=== PATIENT | female | born 1980 | race Hispanic/Latino ===

== ENCOUNTER 2022-04-28 16:28 | Inpatient (IN) | payer OTHER ==
[~2022-04-28] VITALS: Ht 165.1 cm; Wt 111.7 kg
[2022-04-28 16:49] LABS: BASOPHILS % (AUTO) 0.3 % (0.0-5.0); EOSINOPHILS % (AUTO) 0.2 % (0.0-8.0); HEMATOCRIT 22.1 % (36-48); LYMPHOCYTES % (AUTO) 4.8 % (21.0-51.0); MEAN CORPUSCULAR HEMOGLOBIN 27.9 pg (27.0-33.0); MEAN CORPUSCULAR HGB CONC 31.2 g/dL (32.0-36.0); MEAN CORPUSCULAR VOLUME 89.5 fL (79-99); MONOCYTES % (AUTO) 6.3 % (3.0-13.0); NEUTROPHILS % (AUTO) 87.7 % (40.0-77.0); PLATELET COUNT (AUTO) 307 K/uL (130-400); RED BLOOD CELL COUNT(AUTO) 2.47 MIL/uL (4.00-5.50); RED CELL DISTRIBUTION WIDTH 17.4 % (11.0-15.5); WHITE BLOOD COUNT (AUTO) 17.2 K/uL (4.8-10.8)
[2022-04-28 16:59] LABS: CREATININE 6.8 mg/dL (0.5-1.5); POTASSIUM 4.2 mmol/L (3.5-5.1)
[2022-04-28 17:03] LABS: ALBUMIN 1.8 g/dL (3.5-5.0); TOTAL PROTEIN, SERUM 6.8 g/dL (6.0-8.3)
[2022-04-28] MEDS ORDERED: ONDANSETRON 4MG INJ IVP ONE (17:30)
[2022-04-28] MEDS ORDERED: 0.9% NACL 250ML 250 ML IV ONE (17:30)
[2022-04-28] MEDS ORDERED: MORPHINE 4 MG SYG IVP ONE (17:30)
[2022-04-28 18:03] LABS: APPEARANCE,URINE CLOUDY (CLEAR); BILIRUBIN,URINE NEGATIVE (NEGATIVE); COLOR,URINE YELLOW (YELLOW); GLUCOSE, URINE (UA) NEGATIVE (NEGATIVE); HCG,QUALITATIVE URINE NEGATIVE (NEGATIVE); KETONES,URINE NEGATIVE (NEGATIVE); LEUKOCYTE ESTERASE ,URINE LARGE (NEGATIVE); NITRATE,URINE POSITIVE (NEGATIVE); OCCULT BLOOD,URINE LARGE (NEGATIVE); PROTEIN,URINE 100 mg/dL (NEGATIVE); UROBILINOGEN,URINE 0.2 mg/dL (0.2-1.0)
[2022-04-28 18:24] LABS: BACTERIA,URINE Few /HPF (None Seen); RBC,URINE 51-100 /HPF (0-1); SQUAMOUS EPITHELIAL CELL,UR Few /HPF (0-2); YEAST,URINE BUDDING Rare /HPF (None Seen)
[2022-04-28] MEDS ORDERED: CEFTRIAXONE 1G VIAL IVP ONE (18:30)
[2022-04-28] MEDS ORDERED: ACETAMINOPHEN 325 MG TAB PO PRN (20:00)
[2022-04-28] MEDS ORDERED: DEXTROSE 50%-WATER 50 ML DISP.SYRIN IV PRN (20:00)
[2022-04-28] MEDS ORDERED: ONDANSETRON 4MG INJ IV PRN (20:00)
[2022-04-28] MEDS ORDERED: GLUCAGON 1MG KIT 1 MG ML IM PRN (20:00)
[2022-04-28] MEDS ORDERED: NITROGLYCERIN 0.4 MG SL TAB SL PRN (20:00)
[2022-04-28 20:41] LABS: INR 1.02 (0.85-1.15); PROTHROMBIN TIME 11.1 SEC (9.6-11.6)
[2022-04-28 20:43] LABS: % IRON SATURATION 12.2 % (22-44); PARTIAL THROMBOPLASTIN TIME 27.7 SEC (26.3-35.5)
[2022-04-28 20:46] LABS: HEMOGLOBIN A1C 5.6 % (4.0-6.0)
[2022-04-28] MEDS: INSULIN HUMULIN R 100 UNIT/ML 3ML SQ SCH (21:00)
[2022-04-28 21:04] LABS: CRP QUANTITATIVE 227.4 mg/L (0.00-9.0)
[2022-04-28 21:06] LABS: MAGNESIUM 1.5 mg/dL (1.80-2.40)
[2022-04-28] MEDS: FAMOTIDINE 20MG TAB PO SCH (22:17)
[2022-04-28 22:50] VITALS: BP 125/61
[2022-04-28] MEDS ORDERED: 0.9%NACL 50ML IV SCH (23:30)
[2022-04-28] MEDS ORDERED: CALCIUM GLUC 1GM/10ML VIAL IVPB SCH (23:30)
[2022-04-28] MEDS ORDERED: TRAZ-187 PO (23:36)
[2022-04-28] MEDS ORDERED: METOPROLOL ER PO (23:37)
[2022-04-28] MEDS ORDERED: HYDR100T27 PO (23:38)
[2022-04-29 04:00] VITALS: BP 131/74
[2022-04-29] MEDS: ACETAMINOPHEN 325 MG TAB PO PRN ×3 (04:34→20:02)
[2022-04-29 04:47] LABS: CREATININE 6.6 mg/dL (0.5-1.5); POTASSIUM 4.8 mmol/L (3.5-5.1)
[2022-04-29 04:51] LABS: ALBUMIN 1.9 g/dL (3.5-5.0); MAGNESIUM 1.6 mg/dL (1.80-2.40); PHOSPHORUS 4.3 mg/dL (2.5-4.9); TOTAL PROTEIN, SERUM 7.5 g/dL (6.0-8.3)
[2022-04-29 05:06] LABS: BASOPHILS % (AUTO) 0.3 % (0.0-5.0); EOSINOPHILS % (AUTO) 0.5 % (0.0-8.0); HEMATOCRIT 27.7 % (36-48); LYMPHOCYTES % (AUTO) 7.3 % (21.0-51.0); MEAN CORPUSCULAR HEMOGLOBIN 28.4 pg (27.0-33.0); MEAN CORPUSCULAR HGB CONC 31.8 g/dL (32.0-36.0); MEAN CORPUSCULAR VOLUME 89.4 fL (79-99); MONOCYTES % (AUTO) 6.5 % (3.0-13.0); NEUTROPHILS % (AUTO) 84.6 % (40.0-77.0); PLATELET COUNT (AUTO) 310 K/uL (130-400); RED CELL DISTRIBUTION WIDTH 17.2 % (11.0-15.5); WHITE BLOOD COUNT (AUTO) 20.2 K/uL (4.8-10.8)
[2022-04-29] MEDS: MAGNESIUM 2GM PREMIX 50ML 50 ML IV SCH (05:20)
[2022-04-29] MEDS: INSULIN HUMULIN R 100 UNIT/ML 3ML SQ SCH ×4 (05:21→20:18)
[2022-04-29 07:39] VITALS: BP 103/48
[2022-04-29] MEDS: FAMOTIDINE 20MG TAB PO SCH (08:37)
[2022-04-29] MEDS ORDERED: CEFTRIAXONE 1G VIAL IV SCH (09:00)
[2022-04-29 11:22] VITALS: BP 130/72
[2022-04-29 15:39] VITALS: BP 148/73
[2022-04-29 15:40] VITALS: BP 113/54
[2022-04-29 19:50] LABS: APPEARANCE,URINE CLOUDY (CLEAR); BILIRUBIN,URINE NEGATIVE (NEGATIVE); COLOR,URINE YELLOW (YELLOW); GLUCOSE, URINE (UA) NEGATIVE (NEGATIVE); KETONES,URINE NEGATIVE (NEGATIVE); LEUKOCYTE ESTERASE ,URINE LARGE (NEGATIVE); NITRATE,URINE NEGATIVE (NEGATIVE); OCCULT BLOOD,URINE LARGE (NEGATIVE); PROTEIN,URINE 30 mg/dL (NEGATIVE); UROBILINOGEN,URINE 0.2 mg/dL (0.2-1.0)
[2022-04-29 20:00] VITALS: BP 114/67
[2022-04-29] MEDS ORDERED: LEVOFLOXACIN 250 MG/D5W 50ML 50 ML IVPB SCH (20:00)
[2022-04-29 20:10] LABS: RBC,URINE 26-50 /HPF (0-1)
[2022-04-29 20:11] LABS: BACTERIA,URINE Few /HPF (None Seen)
[2022-04-29 20:12] LABS: SQUAMOUS EPITHELIAL CELL,UR Rare /HPF (0-2); YEAST,URINE BUDDING Few /HPF (None Seen)
[2022-04-29] MEDS: CEFEPIME HCL 1 GM VIAL IVP SCH (20:56)
[2022-04-30] VITALS (7 sets, daily range): BP systolic 99–160; BP diastolic 57–98
[2022-04-30] MEDS: ACETAMINOPHEN 325 MG TAB PO PRN ×2 (01:52→09:12)
[2022-04-30 05:30] LABS: HEMATOCRIT 23.6 % (36-48); MEAN CORPUSCULAR HGB CONC 31.8 g/dL (32.0-36.0); MEAN CORPUSCULAR VOLUME 88.1 fL (79-99); PLATELET COUNT (AUTO) 290 K/uL (130-400); RED BLOOD CELL COUNT(AUTO) 2.68 MIL/uL (4.00-5.50); RED CELL DISTRIBUTION WIDTH 17.2 % (11.0-15.5); WHITE BLOOD COUNT (AUTO) 16.9 K/uL (4.8-10.8)
[2022-04-30 05:45] LABS: % IRON SATURATION 19.2 % (22-44)
[2022-04-30 05:56] LABS: ALBUMIN 1.5 g/dL (3.5-5.0); CREATININE 6.4 mg/dL (0.5-1.5); MAGNESIUM 1.8 mg/dL (1.80-2.40); PHOSPHORUS 4.4 mg/dL (2.5-4.9); POTASSIUM 4.6 mmol/L (3.5-5.1); TOTAL PROTEIN, SERUM 6.2 g/dL (6.0-8.3)
[2022-04-30] MEDS: INSULIN HUMULIN R 100 UNIT/ML 3ML SQ SCH ×4 (05:56→21:00)
[2022-04-30] MEDS: MAGNESIUM 2GM PREMIX 50ML 50 ML IV SCH (06:06)
[2022-04-30 06:07] LABS: BAND NEUTROPHILS % (MANUAL) 3 % (0-2); LYMPHOCYTES % (MANUAL) 5 % (22-44); MAN.DIFF COMMENT-IMPRESSION MANUAL DIFFERENTIAL; MONOCYTES % (MANUAL) 2 % (2-9); PLATELET MORPHOLOGY COMMENT ADEQUATE; SEGMENTED NEUTROPHILS % 90 % (40-70)
[2022-04-30] MEDS: FAMOTIDINE 20MG TAB PO SCH (09:11)
[2022-04-30] MEDS: Vitamin B Complex/Vit C/Folic Acid PO SCH (09:11)
[2022-04-30] MEDS ORDERED: PHARMACY COMMUNICATION MISC SCH (10:30)
[2022-04-30] MEDS ORDERED: KETOROLAC 15MG/ML VIAL (15MG/ML) IV PRN (10:30)
[2022-04-30] MEDS: IRON SUCROSE COMPLEX 300 MG in 0.9% NACL 250ML 250 ML IVP SCH (10:59)
[2022-04-30] MEDS ORDERED: COMPOUND IV MISC 1 EACH IVSOLN MISC PRN (12:00)
[2022-04-30 14:48] LABS: HEMATOCRIT 22.7 % (36-48)
[2022-04-30] MEDS: CEFEPIME HCL 1 GM VIAL IVP SCH (19:55)
[2022-04-30] MEDS ORDERED: LEVOFLOXACIN 250 MG/D5W 50ML 50 ML IVPB SCH (20:00)
[2022-05-01] VITALS: BP 114/52
[2022-05-01 04:00] VITALS: BP 134/66
[2022-05-01] MEDS: INSULIN HUMULIN R 100 UNIT/ML 3ML SQ SCH ×3 (06:03→16:30)
[2022-05-01 07:30] VITALS: BP 150/32
[2022-05-01 08:29] LABS: HEMATOCRIT 25.4 % (36-48); MEAN CORPUSCULAR HEMOGLOBIN 28.1 pg (27.0-33.0); MEAN CORPUSCULAR HGB CONC 31.9 g/dL (32.0-36.0); MEAN CORPUSCULAR VOLUME 88.2 fL (79-99); PLATELET COUNT (AUTO) 332 K/uL (130-400); RED BLOOD CELL COUNT(AUTO) 2.88 MIL/uL (4.00-5.50); RED CELL DISTRIBUTION WIDTH 17.2 % (11.0-15.5); WHITE BLOOD COUNT (AUTO) 19.2 K/uL (4.8-10.8)
[2022-05-01 08:37] LABS: CREATININE 6.2 mg/dL (0.5-1.5); POTASSIUM 4.9 mmol/L (3.5-5.1)
[2022-05-01 08:42] LABS: ALBUMIN 1.7 g/dL (3.5-5.0); TOTAL PROTEIN, SERUM 6.7 g/dL (6.0-8.3)
[2022-05-01] MEDS ORDERED: IRON SUCROSE COMPLEX 100 MG in 0.9%NACL 50ML 50 ML IV SCH (09:00)
[2022-05-01] MEDS: IRON SUCROSE COMPLEX 300 MG in 0.9% NACL 250ML 250 ML IVP SCH (09:00)
[2022-05-01] MEDS: Vitamin B Complex/Vit C/Folic Acid PO SCH (09:21)
[2022-05-01] MEDS: FAMOTIDINE 20MG TAB PO SCH (09:21)
[2022-05-01] MEDS: ACETAMINOPHEN 325 MG TAB PO PRN (09:22)
[2022-05-01 09:47] LABS: BAND NEUTROPHILS % (MANUAL) 1 % (0-2); EOSINOPHILS % (MANUAL) 1 % (1-6); LYMPHOCYTES % (MANUAL) 4 % (22-44); MAN.DIFF COMMENT-IMPRESSION MANUAL DIFFERENTIAL; MONOCYTES % (MANUAL) 1 % (2-9); SEGMENTED NEUTROPHILS % 93 % (40-70)
[2022-05-01 11:00] VITALS: BP 99/32
[2022-05-01] MEDS ORDERED: LEVO750T68 PO (14:33)
[2022-05-01] MEDS ORDERED: LEVOFLOXACIN 250 MG/D5W 50ML 50 ML IVPB SCH (20:00)
== END 2022-05-01 17:45 | disposition home or self-care (01) | DRG 871 ==
LOC: EDH 16:28 → EDHIP 16:29 → 4DH 22:41
PROVIDERS: ADMIT Internal Medicine; ATTEND Internal Medicine
PROC: 30233N1 Transfusion of Nonautologous Red Blood Cells into Peripheral Vein, Percutaneous Approach (ICD-10-PCS; principal; 2022-04-29)
DX: A41.9 Sepsis, unspecified organism (principal); N18.6 End stage renal disease; Z20.822 Contact with and (suspected) exposure to COVID-19; N39.0 Urinary tract infection, site not specified; E87.1 Hypo-osmolality and hyponatremia; Z68.41 Body mass index [BMI] 40.0-44.9, adult; R65.20 Severe sepsis without septic shock; K57.30 Diverticulosis of large intestine without perforation or abscess without bleeding; N18.9 Chronic kidney disease, unspecified; E83.51 Hypocalcemia; E83.42 Hypomagnesemia; E11.22 Type 2 diabetes mellitus with diabetic chronic kidney disease; E66.01 Morbid (severe) obesity due to excess calories
CPT/HCPCS: 36415; 74176; 80053; 81001; 81025; 82306; 82330; 82728; 82948; 83036; 83540; 83550; 83605; 83690; 83735; 83970; 84100; 84145; 85014; 85018; 85025; 85610; 85730; 86140; 86156; 86850; 86870; 86900; 86901; 86922; 87040; 87077; 87088; 87186; 87635; G0378; J0692; J0696; J1756; J1815; J1885; J1956; J2270; J2405; J3475; J7050; P9016

== ENCOUNTER 2024-01-24 17:22 | Emergency (ER) | payer BC ==
[~2024-01-24] VITALS: Ht 165.1 cm; Wt 101.6 kg
[~2024-01-24 17:22] MED LIST: REPA0.5T6 PO; SEVE800T27 PO; TRAZ-187 PO
[2024-01-24 18:01] LABS: BASOPHILS % (AUTO) 1.1 % (0.0-5.0); EOSINOPHILS # (AUTO) 0.19 K/uL (0.00-0.70); EOSINOPHILS % (AUTO) 2.1 % (0.0-8.0); HEMATOCRIT 33.4 % (36-48); IMMATURE GRANULOCYTE ABSOLUTE 0.03 K/uL (0-1); LYMPHOCYTES # (AUTO) 1.7 K/uL (1.0-4.8); LYMPHOCYTES % (AUTO) 18.5 % (21.0-51.0); MEAN CORPUSCULAR HEMOGLOBIN 31.9 pg (27.0-33.0); MEAN CORPUSCULAR HGB CONC 33.5 g/dL (32.0-36.0); MEAN CORPUSCULAR VOLUME 95.2 fL (79-99); MONOCYTES # (AUTO) 0.5 K/uL (0.1-1.0); MONOCYTES % (AUTO) 5.4 % (3.0-13.0); NEUTROPHILS # (AUTO) 6.7 K/uL (1.8-7.7); NEUTROPHILS % (AUTO) 72.6 % (40.0-77.0); PLATELET COUNT (AUTO) 239 K/uL (130-400); RED BLOOD CELL COUNT(AUTO) 3.51 MIL/uL (4.00-5.50); RED CELL DISTRIBUTION WIDTH 13.5 % (11.0-15.5); WHITE BLOOD COUNT (AUTO) 9.2 K/uL (4.8-10.8)
[2024-01-24 18:13] LABS: ALANINE AMINOTRANSFERASE 12 U/L (12-78); ALBUMIN 3.4 g/dL (3.5-5.0); ALCOHOL, BLOOD 52 mg/dL (0-10); ASPARTATE AMINOTRANSFERASE 20 U/L (10-37); BILIRUBIN,TOTAL 0.6 mg/dL (0.2-1.0); CARBON DIOXIDE 22 mmol/L (21-32); CHLORIDE 93 mmol/L (101-111); GLOMERULAR FILTR. RATE CALC 5 mL/min (>90); GLUCOSE,RANDOM 107 mg/dL (70-105); POTASSIUM 4.1 mmol/L (3.5-5.1); SODIUM SERUM 134 mmol/L (136-145); UREA NITROGEN, BLOOD 55 mg/dL (7-18)
[2024-01-24 18:14] LABS: ACETAMINOPHEN < 1 mcg/mL (10-30); SALICYLATE < 2.8 mg/dL (2.8-20.0)
[2024-01-24 18:15] LABS: CREATININE 9.7 mg/dL (0.5-1.0)
[2024-01-24] MEDS: HYDROXYZINE 50MG VIAL 50 MG/ML VIAL IM SCH (20:20)
[2024-01-24 20:23] LABS: ADD UA MICROSCOPIC YES; APPEARANCE,URINE CLOUDY (CLEAR); BILIRUBIN,URINE NEGATIVE (NEGATIVE); COLOR,URINE COLORLESS (YELLOW); GLUCOSE, URINE (UA) 70 mg/dL (NEGATIVE); KETONES,URINE NEGATIVE (NEGATIVE); LEUKOCYTE ESTERASE ,URINE 250 Leu/uL (NEGATIVE); NITRATE,URINE NEGATIVE (NEGATIVE); OCCULT BLOOD,URINE LARGE (NEGATIVE); PROTEIN,URINE 70 mg/dL (NEGATIVE); UROBILINOGEN,URINE 0.2 mg/dL (0.2-1.0)
[2024-01-24 20:25] LABS: HCG,QUALITATIVE URINE NEGATIVE (NEGATIVE)
[2024-01-24 20:27] LABS: BACTERIA,URINE RARE /HPF (None Seen); NON-SQUAMOUS EPITHELIAL CELL <1 /HPF (0-2); RBC,URINE 26-50 /HPF (0-1); SQUAMOUS EPITHELIAL CELL,UR FEW /HPF (0-2); UNCLASSIFIED CRYSTAL 4 /HPF (None Seen); YEAST,URINE BUDDING RARE /HPF (None Seen)
[2024-01-24] MEDS ORDERED: CEPH500B PO (20:43)
[2024-01-24 20:51] VITALS: BP 105/68; PULSE 90; RESP 18; O2SAT 99
== END 2024-01-24 20:59 | disposition home or self-care (01) ==
LOC: EDH 17:22
DX: I12.0 Hypertensive chronic kidney disease with stage 5 chronic kidney disease or end stage renal disease (principal); E11.22 Type 2 diabetes mellitus with diabetic chronic kidney disease; N18.6 End stage renal disease; N39.0 Urinary tract infection, site not specified; Z79.899 Other long term (current) drug therapy; Z98.890 Other specified postprocedural states; Z90.49 Acquired absence of other specified parts of digestive tract; Z88.8 Allergy status to other drugs, medicaments and biological substances
CPT/HCPCS: 99284; 71045; 80053; 85025; 87088; 81025; 36415; 96372; 93005; 81001; G0481; J3410

== ENCOUNTER 2024-07-13 01:49 | Emergency (ER) | payer BC ==
[~2024-07-13] VITALS: Ht 165.1 cm; Wt 103.4 kg
[~2024-07-13 01:49] MED LIST changes: +ASPI-1443 PO; +DOCU100C33 PO; +HYDR-3421 PO; -REPA0.5T6 PO; +TRAM50TA4 PO; -TRAZ-187 PO
--- NOTE | 2024-07-13 02:08 | ERN ---
ED Note History of Present Illness Stated Complaint: C/O ABD PAIN WITH CONSTIPATION Chief Complaint: Abdominal Pain Time Seen by MD: 01:56 Dictation: This is a 44-year-old morbidly obese female who presented to the emergency room with complaints of abdominal discomfort associated with constipation. She has a end-stage renal disease has a peritoneal dialysis catheter. She does daily PD. She stated that she does not do any hemodialysis. She was complaining of feeling very shaky. She denied any cocaine or alcohol recently but does smoke marijuana daily. She stated that she took her blood pressure medications. Temperature 98.1 pulse 121 respirations 20 blood pressure 217/91 pulse oximetry 96% on room air Her chronic medical problems include hypertension, diabetes mellitus, anemia, hypercholesterolemia, end-stage renal disease on peritoneal dialysis Allergies: Coded Allergies: piperacillin (Unverified Allergy, Unknown, 02/07/24) ITCHING prochlorperazine (Unverified Allergy, Unknown, 04/28/22) Home Meds Reported Medications Aspirin (Aspirin EC) 81 Mg Tablet.dr, 1 TAB PO DAILY 02/07/24 Tramadol Hcl (Tramadol HCl) 50 Mg Tablet, 1 TAB PO [id number] PRN for PAIN LEVEL 6 TO 10 02/07/24 Docusate Sodium (Docusate Sodium) 100 Mg Capsule, 1 CAP PO DAILY 02/07/24 Hydroxyzine HCl (Hydroxyzine HCl) 25 Mg Tablet, 1 TAB PO AD DAILY NEEDED 02/07/24 Sevelamer HCl (Sevelamer HCl) 800 Mg Tablet, 2400 MG PO TIDMEALS, TAB 03/23/23 Past Medical History Past Medical History: Hypertension, Renal Disese, Renal Failure Additional Past Medical Hx: UNK Surgical History: Appendectomy, Surgical History Other: ABD SX, DIALYSIS SHUNT TO RLE Family History: Negative Social History: Drugs, ETOH, Lives with family RN Note Reviewed/Agreed w/PFSH: Yes Review of System Dictation Constitutional: Negative for fever,chills, and weight loss Eyes: Negative for injury, pain,redness, and discharge ENT: Negative for injury,pain or swelling Cardiovascular: Negative for chest pain, palpitations, and edema Respiratory: Negative for shortness of breath, cough, and wheezing, Abdomen/GI: Positive for abdominal pain, and constipation but denies nausea, vomiting, diarrhea Back: Negative for injury and pain : Negative for injury, bleeding and discharge MS/Extremity: Negative for injury and deformity Skin: Negative for rash, and discoloration Neuro: Negative for headache, weakness, numbness, tingling, and seizure Psych: Negative for suicide ideation, homicidal ideation, and hallucinations Initial Vital Sign VS Vital Signs Date Time Temp Pulse Resp B/P (MAP) Pulse Ox O2 Delivery O2 Flow Rate FiO2 07/13/24 01:52 98.1 121 20 217/91 96 Room Air 07/13/24 02:20 0 21 Physical Exam Dictation General: awake, alert, NAD morbidly obese female, generally anxious Head/Face: Normocephalic, atraumatic Eyes: PERRL, EOMI, vision at baseline ENT: oral cavity clear, TMs clear, no signs of infection Neck: Trachea midline, supple, no nuchal rigidity Cardiovascular: RRR, normal S1/S2, No MRGs, no JVD Respiratory: CTAB, no respiratory distress, No rales or wheezes Abdomen: Soft, non-tender, -distended, normal bowel sounds, no guarding or rebound. Left side of the abdomen--peritoneal dialysis catheter is in place Skin: Warm, dry, normal turgor, no rash MS/Extremity: Pulses equal, no cyanosis, neurovascular intact, FROM Neuro: COAx4, GCS 15, strength 5/5, CN 2-12 intact, normal cerebellar exam, normal gait, Psych: Normal behavior, mood, and affect normal Extremities-trace edema without any palpable cords, Homans sign is negative Results (Laboratory/Radiology) Laboratory/Radiology Laboratory Tests Test 07/13/24 02:03 White Blood Count 10.9 K/uL (4.8-10.8) H Red Blood Count 3.79 MIL/uL (4.00-5.50) L Hemoglobin 11.1 g/dL (12.0-16.0) L Hematocrit 34.9 % (36-48) L Mean Corpuscular Volume 92.1 fL (79-99) Mean Corpuscular Hemoglobin 29.3 pg (27.0-33.0) Mean Corpuscular Hemoglobin Concent 31.8 g/dL (32.0-36.0) L Red Cell Distribution Width 14.6 % (11.0-15.5) Platelet Count 212 K/uL (130-400) Mean Platelet Volume 9.6 fL (7.5-10.5) Immature Granulocyte % (Auto) 0.3 % (0-1) Neutrophils (%) (Auto) 83.2 % (40.0-77.0) H Lymphocytes (%) (Auto) 12.0 % (21.0-51.0) L Monocytes (%) (Auto) 3.3 % (3.0-13.0) Eosinophils (%) (Auto) 0.6 % (0.0-8.0) Basophils (%) (Auto) 0.6 % (0.0-5.0) Neutrophils # (Auto) 9.1 K/uL (1.8-7.7) H Lymphocytes # (Auto) 1.3 K/uL (1.0-4.8) Monocytes # (Auto) 0.4 K/uL (0.1-1.0) Eosinophils # (Auto) 0.07 K/uL (0.00-0.70) Basophils # (Auto) 0.06 K/uL (0.00-0.20) Absolute Immature Granulocyte (auto 0.03 K/uL (0-1) Nucleated Red Blood Cells 0.0 % (0.0-0.19) Sodium Level 132 mmol/L (136-145) L Potassium Level 5.5 mmol/L (3.5-5.1) H Chloride Level 97 mmol/L (101-111) L Carbon Dioxide Level 19 mmol/L (21-32) L Blood Urea Nitrogen 72 mg/dL (7-18) H Creatinine 11.0 mg/dL (0.5-1.0) *H Glomerular Filtration Rate Calc 4 mL/min (>90) Random Glucose 167 mg/dL (70-105) H Total Calcium 8.2 mg/dL (8.5-10.1) L Labs Reviewed?: Yes ED Course ED Course Orders Procedure Category Date Status Time Cbc With Differential LAB 07/13/24 Complete 01:57 ,Urine Test LAB 07/13/24 Logged 01:57 Dicyclomine Hcl PHA 07/13/24 Complete (Bentyl 10mg/5ml 02:00 Basic Metabolic Panel LAB 07/13/24 Complete 01:57 Drug Screen Urine LAB 07/13/24 Logged 01:57 Metoprolol Tartrate PHA 07/13/24 Complete (Lopressor) 02:00 Lactulose 20 Gm/30 Ml PHA 07/13/24 Complete Udcup (Constulose 02:30 Chest 1vw RAD 07/13/24 Taken 02:50 Current Medications Medications (Trade) Dose Ordered Sig/Isabel Route PRN Reason Start Time Stop Time Status Last Admin Dose Admin Dicyclomine HCl (Bentyl 10mg/5ml Syrup) 10 mg ONCE ONCE PO 07/13/24 02:00 07/13/24 02:01 DC 07/13/24 02:31 Lactulose (Constulose 20gm/ 30ml Udcup) 20 gm ONCE ONCE PO 07/13/24 02:30 07/13/24 02:31 DC 07/13/24 02:31 Metoprolol Tartrate (loprESSOR) 5 mg ONCE ONCE IV 07/13/24 02:00 07/13/24 02:01 DC 07/13/24 02:32 Vital Signs Date Time Temp Pulse Resp B/P (MAP) Pulse Ox O2 Delivery O2 Flow Rate FiO2 07/13/24 03:20 88 18 131/59 98 Room Air* 0 21 07/13/24 02:32 104 189/77 07/13/24 02:20 98.8 104 20 189/77 98 Room Air* 0 21 07/13/24 01:52 98.1 121 20 217/91 96 Room Air We will perform diagnostic labs, advanced imaging and administer medications according to the patient's complaint. Once the results are available, will review and personally interpreted the labs to rule out any acute life- threatening emergency the trach require immediate intervention and treatment. I will then re-evaluate the patient after treatment and diagnostic exams have return to determine whether the patient requires any further testing, can safely be discharged home or need further admission to hospital for additional treatment and evaluation. Labs reviewed CBC with a normal limits except for a white count of 10.9 hemoglobin 11.1 at baseline. BNP 7 showed a sodium of 132 potassium 5.5 chloride 97 bicarb 19 BUN and creatinine are 72 and 11 4:18 a.m. patient feels significantly improved after lactulose and having a bowel movement. Her blood pressure heart rate have improved significantly. Patient indicated that she is in the process of getting an AV fistula placement. Her special loan officer is in [facility]. She would like to follow up only with her special loan officer for any renal issues. I will plan to discharge her to home with p.r.n. lactulose and she will follow up with her regular doctors and special loan officer.. Unfortunately she could not provide the urine specimen as she forgot Medical Decision Making MDM MDM: Differential diagnosis: Constipation, increased peritoneal fluid, bowel edema, medication effect Rationale: Tests considered and ordered secondary to shared decision making include: Previous outside records reviewed: Old ER visits. Risk of complication and/or morbidity or mortality of patient management: None Medications-Per medication reconciliation Need for hospitalization: Patient does not meet criteria for hospitalization. Need for emergency major/minor surgery: No There are no social concerns with this patient. Prescription drug management Prescriptions will include symptomatic care Patient's prior external medical records from other ER visits were reviewed by me as indicated. Prior testing and results from previous visits were reviewed. Prior tests were taken into account with medical decision making and resource utilization, independent historian/historians were used to obtain complete medical history. I independently interpreted the test that were performed, results were reviewed by me and considered findings on radiology if ordered. Medical management and examination interpretation discussions were had by me with other qualified healthcare professionals as indicated for the patient's care. Problem List Problem List: (1) Abdominal pain (2) Constipation (3) ESRD (end stage renal disease) (4) Polycystic kidney disease (5) Anemia (6) Requires peritoneal dialysis DX & DISP Disposition: Discharge Departure Impression: Primary Impression: Abdominal pain Additional Impressions: Constipation, ESRD (end stage renal disease), Polycystic kidney disease, Requires peritoneal dialysis Condition: Stable Scripts Lactulose (Lactulose) 20 Gram/30 Ml Solution 20 GM PO [id number] PRN for constipation, #60 ML Prov: KENNY VILLALTA MD 07/13/24 Additional Instructions: Patient and the caregiver have been informed of all the diagnostic tests and the imaging conducted during the today's visit to the emergency room and has verbalized understanding of the results I have personally reviewed and interpreted all diagnostic exams performed here in the ER today as well as the vital signs documented by the nursing staff. The patient is now being discharged to home and should follow up with the primary care physician or the specialist as directed by the ER staff. Follow-up with primary care provider in 1 to 2 days. Take medications as directed here in the emergency room. Okay to continue home medications unless otherwise discussed during your visit in the emergency room today. Return to your nearest emergency room if symptoms worsen or if there is no improvement. Call 911 if you need immediate assistance. Take Tylenol or Motrin [id number] as needed and if no contraindications are present. Increase oral hydration. A wound culture or urine culture was ordered here in the emergency room department please follow-up with primary care provider and advise them to get repeat ports from our facility. If you had any Willie wrap/splints that were applied here, please do not remove them until you see your primary care or specialty. Referrals: RITO CANO MD (PCP) KENNY VILLALTA MD Jul 13, 2024 02:08
[2024-07-13 02:13] LABS: BASOPHILS # (AUTO) 0.06 K/uL (0.00-0.20); BASOPHILS % (AUTO) 0.6 % (0.0-5.0); EOSINOPHILS # (AUTO) 0.07 K/uL (0.00-0.70); EOSINOPHILS % (AUTO) 0.6 % (0.0-8.0); HEMATOCRIT 34.9 % (36-48); IMMATURE GRANULOCYTE ABSOLUTE 0.03 K/uL (0-1); LYMPHOCYTES # (AUTO) 1.3 K/uL (1.0-4.8); MEAN CORPUSCULAR HEMOGLOBIN 29.3 pg (27.0-33.0); MEAN CORPUSCULAR HGB CONC 31.8 g/dL (32.0-36.0); MEAN CORPUSCULAR VOLUME 92.1 fL (79-99); MONOCYTES # (AUTO) 0.4 K/uL (0.1-1.0); MONOCYTES % (AUTO) 3.3 % (3.0-13.0); NEUTROPHILS # (AUTO) 9.1 K/uL (1.8-7.7); NEUTROPHILS % (AUTO) 83.2 % (40.0-77.0); PLATELET COUNT (AUTO) 212 K/uL (130-400); RED BLOOD CELL COUNT(AUTO) 3.79 MIL/uL (4.00-5.50); RED CELL DISTRIBUTION WIDTH 14.6 % (11.0-15.5); WHITE BLOOD COUNT (AUTO) 10.9 K/uL (4.8-10.8)
[2024-07-13 02:25] LABS: POTASSIUM 5.5 mmol/L (3.5-5.1)
[2024-07-13] MEDS: LACTULOSE 20 GM/30 ML UDCUP PO ONE (02:31)
[2024-07-13] MEDS: DICYCLOMINE HCL 10 MG/5 ML ML PO ONE (02:31)
[2024-07-13] MEDS: metoPROLOL tartRATE 1 MG/ML 5ML VIAL IV ONE (02:32)
[2024-07-13] MEDS ORDERED: LACT10SO9 PO (04:25)
[2024-07-13 04:41] VITALS: BP 134/65; PULSE 84; RESP 18; TEMP 98.6; O2SAT 97
--- NOTE | 2024-07-13 09:15 | HMCIMG ---
CHEST 1VW HISTORY: End-stage renal disease COMPARISON: None FINDINGS: A frontal projection of the chest was obtained. No acute pulmonary infiltrates is seen. The heart is normal in size. Prominent interstitial markings are seen. No evidence of aortic calcification is seen. IMPRESSION: 1. No acute pulmonary infiltrate is seen.
== END 2024-07-13 04:43 | disposition home or self-care (01) ==
LOC: EDH 01:49
DX: K59.00 Constipation, unspecified (principal); I12.0 Hypertensive chronic kidney disease with stage 5 chronic kidney disease or end stage renal disease; N18.6 End stage renal disease; Q61.3 Polycystic kidney, unspecified; Z79.82 Long term (current) use of aspirin; Z88.0 Allergy status to penicillin; Z90.49 Acquired absence of other specified parts of digestive tract; Z99.2 Dependence on renal dialysis; Z79.899 Other long term (current) drug therapy; Z98.890 Other specified postprocedural states
CPT/HCPCS: 99284; 96374; 71045; 80048; 85025; 36415; J3490

== ENCOUNTER 2024-08-02 20:51 | Emergency (ER) | payer BC ==
[~2024-08-02] VITALS: Ht 165.1 cm; Wt 103.9 kg
[~2024-08-02 20:51] MED LIST changes: +LACT10SO9 PO
[2024-08-02 20:53] VITALS: TEMP 98
[2024-08-02 21:48] LABS: APPEARANCE,URINE CLEAR (CLEAR); BILIRUBIN,URINE NEGATIVE (NEGATIVE); GLUCOSE, URINE (UA) 200 mg/dL (NEGATIVE); KETONES,URINE NEGATIVE (NEGATIVE); LEUKOCYTE ESTERASE ,URINE 25 Leu/uL (NEGATIVE); NITRATE,URINE NEGATIVE (NEGATIVE); OCCULT BLOOD,URINE SMALL (NEGATIVE); PROTEIN,URINE 50 mg/dL (NEGATIVE); UROBILINOGEN,URINE 0.2 mg/dL (0.2-1.0)
[2024-08-02 21:51] LABS: ADD UA MICROSCOPIC YES; COLOR,URINE LIGHT-YELLOW (YELLOW)
[2024-08-02 21:52] LABS: BACTERIA,URINE RARE /HPF (None Seen); SQUAMOUS EPITHELIAL CELL,UR FEW /HPF (0-2)
[2024-08-02 21:53] LABS: BASOPHILS # (AUTO) 0.05 K/uL (0.00-0.20); BASOPHILS % (AUTO) 0.6 % (0.0-5.0); EOSINOPHILS # (AUTO) 0.09 K/uL (0.00-0.70); EOSINOPHILS % (AUTO) 1.1 % (0.0-8.0); HEMATOCRIT 35.9 % (36-48); IMMATURE GRANULOCYTE ABSOLUTE 0.02 K/uL (0-1); LYMPHOCYTES # (AUTO) 0.5 K/uL (1.0-4.8); LYMPHOCYTES % (AUTO) 6.6 % (21.0-51.0); MEAN CORPUSCULAR HEMOGLOBIN 29.8 pg (27.0-33.0); MEAN CORPUSCULAR HGB CONC 30.9 g/dL (32.0-36.0); MEAN CORPUSCULAR VOLUME 96.5 fL (79-99); MONOCYTES # (AUTO) 0.3 K/uL (0.1-1.0); MONOCYTES % (AUTO) 4.3 % (3.0-13.0); NEUTROPHILS # (AUTO) 6.8 K/uL (1.8-7.7); NEUTROPHILS % (AUTO) 87.1 % (40.0-77.0); PLATELET COUNT (AUTO) 160 K/uL (130-400); RED BLOOD CELL COUNT(AUTO) 3.72 MIL/uL (4.00-5.50); RED CELL DISTRIBUTION WIDTH 16.3 % (11.0-15.5); WHITE BLOOD COUNT (AUTO) 7.8 K/uL (4.8-10.8)
[2024-08-02 22:04] LABS: INR 0.98 (0.85-1.15); PROTHROMBIN TIME 10.6 SEC (9.6-11.6)
[2024-08-02 22:13] LABS: CREATININE 10.8 mg/dL (0.5-1.0); POTASSIUM 6.1 mmol/L (3.5-5.1)
[2024-08-02 22:21] LABS: B-TYPE NATRIURETIC PEPTIDE 291 pg/mL (0-100)
[2024-08-02] MEDS ORDERED: SODI10PO2 PO (22:40)
--- NOTE | 2024-08-02 22:42 | ERN ---
General Chief Complaint: Anxiety/Panic Attack Stated Complaint: ANXIETY, FEELING SHAKY Time Seen by MD: 20:54 Source: patient History of Present Illness Initial Comments This is a 44-year-old female coming in to be evaluated for anxiety. Per patient she fell very anxious today decided to come in to be evaluated. She states also states that she checked her blood pressure was elevated took her medications and also took some anxiety medication. Upon evaluation in triage patient states her symptoms have subsided. Patient does have a history of end-stage renal disease and is on home peritoneal dialysis. Allergies: Coded Allergies: piperacillin (Unverified Allergy, Unknown, 02/07/24) ITCHING prochlorperazine (Unverified Allergy, Unknown, 04/28/22) Home Meds Active Scripts Lactulose (Lactulose) 20 Gram/30 Ml Solution, 20 GM PO [id number] PRN for constipation, #60 ML Prov:KENNY VILLALTA MD 07/13/24 Reported Medications Aspirin (Aspirin EC) 81 Mg Tablet.dr, 1 TAB PO DAILY 02/07/24 Tramadol Hcl (Tramadol HCl) 50 Mg Tablet, 1 TAB PO [id number] PRN for PAIN LEVEL 6 TO 10 02/07/24 Docusate Sodium (Docusate Sodium) 100 Mg Capsule, 1 CAP PO DAILY 02/07/24 Hydroxyzine HCl (Hydroxyzine HCl) 25 Mg Tablet, 1 TAB PO AD DAILY NEEDED 02/07/24 Sevelamer HCl (Sevelamer HCl) 800 Mg Tablet, 2400 MG PO TIDMEALS, TAB 03/23/23 Past Medical History Past Medical History: Diabetes-Type II, Hypertension, Renal Disese, Renal Failure Medical History Other: UNK Past Surgical History: Appendectomy, Surgical History Other: ABD SX, DIALYSIS SHUNT TO RLE Family History Family History: Negative Social History Social History: Drugs, ETOH, Lives with family ROS Dictation CONSTITUTIONAL: No chills, no fever, no weakness, no diaphoresis, no malaise. HEAD/FACE: No signs of trauma. EENT: No eye pain, no blurred vision, no tearing, no double vision, no ear pain, no ear discharge, no nose pain, no nasal congestion, no throat pain, no throat swelling, no mouth pain. RESPIRATORY: No cough, no orthopnea, no SOB, no stridor, no wheezing. CARDIOVASCULAR: No chest pain, no edema, no palpitations, no syncope. GASTROINTESTINAL/ABDOMINAL: No abdominal pain, no constipation, no diarrhea, no nausea, no vomiting. GENITOURINARY: No abnormal discharge, no dysuria, no frequent urination, no hematuria. No complaints of pain in the genitals. MUSCULOSKELETAL: No back pain, no gout, no joint pain, no joint swelling, no muscle pain, no muscle stiffness, no neck pain. INTEGUMENTARY: No change in color, no change in hair/nails, no dryness, no lesion, no lumps, no rash. NEUROLOGICAL/PSYCH: No anxiety, not depressed, no emotional problem, no headache, no numbness, no pre-existing deficit, no history of seizures, no tremors, no weakness. HEMATOLOGIC/LYMPHATIC: Not anemic, no history of blood clots, no apparent bleeding, no bruising, glands not swollen. All Systems Negative, Except as Noted. Physical Exam Physical Exam Dictation VITAL SIGNS: Reviewed. GENERAL APPEARANCE: Alert, oriented x3, no acute distress, obese. HEAD AND FACE: Non-traumatic. EYES: PERRL, pink conjunctivas, eyelid no trauma, anterior chamber clear. EARS: Pinnas intact and no signs of trauma or erythema. Ear canals clear and no discharge. TMs no erythema. NOSE: No discharge, no bleeding. OROPHARYNX: Mouth normal, teeth no caries, tongue pink. Pharynx clear, no erythema. Tonsils no exudates, no abscesses noted. Mucous membrane moist. NECK: Supple, non-tender, no thyromegaly, no masses, no JVD, no bruits. BREAST: Deferred. CHEST: No tenderness, no crepitus, no paradoxical movement, no retractions. LUNGS: Clear, well-ventilated, symmetric, no rales, no wheezing, no rhonchi, no stridor, good breath sounds bilaterally. HEART: Regular rate, regular rhythm, no murmur, no gallops. VASCULAR: No peripheral edema. ABDOMEN: Soft, positive bowel sounds, nondistended, no guarding, nontender, no rebound, no masses no hepatomegaly, no splenomegaly, no Maravilla's sign, no hernias. RECTAL: Deferred. GENITAL: Deferred. NEUROLOGICAL: Normal speech, gross motor function intact, gross sensory function intact. MUSCULOSKELETAL: Neck nontender, full range of motion, back nontender, full range of motion. EXTREMITIES: Nontender, full range of motion. SKIN: Color pink, dry, no turgor, no rash, no lacerations, no abrasions, no contusions. LYMPHATICS: Deferred. Results Laboratory and Microbiology Lab and Micro Result Laboratory Tests Test 08/02/24 21:37 08/02/24 21:43 Urine Color LIGHT-YELLOW (YELLOW) Urine Appearance CLEAR (CLEAR) Urine pH 7.0 (5.0-8.0) Urine Specific [place] 1.007 (1.001-1.031) Urine Protein 50 mg/dL (NEGATIVE) H Urine Glucose (UA) 200 mg/dL (NEGATIVE) H Urine Ketones NEGATIVE mg/dL (NEGATIVE) Urine Occult Blood SMALL (NEGATIVE) H Urine Nitrate NEGATIVE (NEGATIVE) Urine Bilirubin NEGATIVE mg/dL (NEGATIVE) Urine Urobilinogen 0.2 mg/dL (0.2-1.0) Urine Leukocyte Esterase 25 Lance/uL (NEGATIVE) H Urine RBC 2-5 /HPF (0-1) H Urine WBC 2-5 /HPF (0-1) H Urine Squamous Epithelial Cells FEW /HPF (0-2) Urine Bacteria RARE /HPF (None Seen) White Blood Count 7.8 K/uL (4.8-10.8) Red Blood Count 3.72 MIL/uL (4.00-5.50) L Hemoglobin 11.1 g/dL (12.0-16.0) L Hematocrit 35.9 % (36-48) L Mean Corpuscular Volume 96.5 fL (79-99) Mean Corpuscular Hemoglobin 29.8 pg (27.0-33.0) Mean Corpuscular Hemoglobin Concent 30.9 g/dL (32.0-36.0) L Red Cell Distribution Width 16.3 % (11.0-15.5) H Platelet Count 160 K/uL (130-400) Mean Platelet Volume 10.7 fL (7.5-10.5) H Immature Granulocyte % (Auto) 0.3 % (0-1) Neutrophils (%) (Auto) 87.1 % (40.0-77.0) H Lymphocytes (%) (Auto) 6.6 % (21.0-51.0) L Monocytes (%) (Auto) 4.3 % (3.0-13.0) Eosinophils (%) (Auto) 1.1 % (0.0-8.0) Basophils (%) (Auto) 0.6 % (0.0-5.0) Neutrophils # (Auto) 6.8 K/uL (1.8-7.7) Lymphocytes # (Auto) 0.5 K/uL (1.0-4.8) L Monocytes # (Auto) 0.3 K/uL (0.1-1.0) Eosinophils # (Auto) 0.09 K/uL (0.00-0.70) Basophils # (Auto) 0.05 K/uL (0.00-0.20) Absolute Immature Granulocyte (auto 0.02 K/uL (0-1) Nucleated Red Blood Cells 0.0 % (0.0-0.19) White Cell Morphology Comment See comments Red Blood Cell Morphology See comments Prothrombin Time 10.6 SEC (9.6-11.6) Prothromb Time International Ratio 0.98 (0.85-1.15) Sodium Level 134 mmol/L (136-145) L Potassium Level 6.1 mmol/L (3.5-5.1) *H Chloride Level 103 mmol/L (101-111) Carbon Dioxide Level 19 mmol/L (21-32) L Blood Urea Nitrogen 81 mg/dL (7-18) *H Creatinine 10.8 mg/dL (0.5-1.0) *H Glomerular Filtration Rate Calc 4 mL/min (>90) Random Glucose 98 mg/dL (70-105) Total Calcium 6.6 mg/dL (8.5-10.1) L Total Creatine Kinase 79 U/L (21-232) # Troponin I High Sensitivity 6 ng/L (4-50) B-Type Natriuretic Peptide 291 pg/mL (0-100) H Labs Reviewed?: Yes EKG/XRAY/US/CT/MRI EKG Comment 08/02/2024 time 2113 Ventricular rate 60 Sinus rhythm [place] [address] wave elevation or depression MDM MDM: Differential diagnosis: Hyperkalemia, end-stage renal disease on peritoneal dialysis, anxiety Patient is a 44-year-old female coming in to be evaluated for anxiety. Patient states that she felt very anxious today she checked her blood pressure was elevated took her medications as well as her Vistaril for anxiety. Upon evaluation in triage she states her symptoms have improved. Laboratory workup positive for elevated potassium at 6.1. Patient states he does not want to stay in the hospital I advised her the best treatment will be in-house treatment of her hyperkalemia but she states she would rather go home and perform her peritoneal dialysis as indicated by her package clerk. Patient received hyperkalemia protocol we will be leaving against medical advice since patient is critical and requires admission. I went ahead and explained to her why we wanted to keep her re-evaluation she continues to refused to be admitted. ED Course Orders Procedure Category Date Status Time Cbc With Differential LAB 08/02/24 Complete 21:03 Prothrombin Time With LAB 08/02/24 Complete INR 21:03 B-Type Natriuretic LAB 08/02/24 Complete Peptide 21:03 Chest 1vw RAD 08/02/24 Taken 21:03 12 Lead Ekg Tracing- EKG 08/02/24 Logged Technical 21:03 Creatine Kinase, Total LAB 08/02/24 Complete 21:03 Troponin I High LAB 08/02/24 Complete Sensitivity 21:03 Urinalysis Profile LAB 08/02/24 Complete 21:03 Basic Metabolic Panel LAB 08/02/24 Complete 21:03 Dextrose 50% 25gm Iv PHA 08/02/24 Transmitted X1 Dose 23:00 Humulin-R 5units Ivp PHA 08/02/24 Transmitted X1 Dose 23:00 Albuterol 10mg Neb Ih PHA 08/02/24 Transmitted Resp X1 23:00 Vital Signs Date Time Temp Pulse Resp B/P (MAP) Pulse Ox O2 Delivery O2 Flow Rate FiO2 08/02/24 21:45 55 14 130/59 97 Room Air* 0 21 08/02/24 20:53 98.1 86 16 158/77 98 Room Air 0 DX & DISP Disposition: AMA Departure Impression: Primary Impression: Requires peritoneal dialysis Additional Impression: Hyperkalemia Condition: Against Medical Advice Scripts Sodium Zirconium Cyclosilicate (Lokelma) 10 Gram Powd.pack 1 PACKET PO DAILY for 30 Days, #30 PACKET 0 Refills Prov: SUNG JENNINGS MD 08/02/24 Additional Instructions: Referrals: Despite my efforts to keep patient in-house patient decided to leave against medical advice. I explained that if she changes her mind to please seek immediate help with the nearest ER with her PCP. Referrals: RITO CANO MD (PCP) Time of Disposition: 22:42 SUNG JENNINGS MD Aug 02, 2024 22:42
[2024-08-02 22:58] VITALS: PULSE 67; RESP 18
[2024-08-02] MEDS: ALBUTEROL 0.083% 2.5 MG/3 ML INH IH SCH (22:58)
[2024-08-02] MEDS: DEXTROSE 50%-WATER 50 ML DISP.SYRIN IV ONE (22:59)
[2024-08-02] MEDS ORDERED: DEXTROSE 50%-WATER 25 GM/50 ML VIAL IV ONE (23:00)
[2024-08-02] MEDS: INSULIN humuLIN R 100 UNIT/ML 3ML IV ONE (23:11)
[2024-08-02 23:58] VITALS: BP 139/77; PULSE 86; RESP 14; O2SAT 97
--- NOTE | 2024-08-03 05:44 | EKG ---
[facility] Test Date: 2024-08-02 Test Time: 21:14:29 Pat Name: TENNILLE HAYNES Department: ED Room: Gender: F Manager Sterile: [id number] : 1980 Requested By: SUNG JENNINGS Order Number: [id number] Reading MD: Heber Cortes Measurements Intervals [place] Rate: 60 P: 72 OK: 140 QRS: 122 QRSD: 100 T: 82 QT: 464 QTc: 462 Interpretive Statements Sinus rhythm Right axis deviation Low voltage, extremity and precordial leads Nonspecific T abnrm, anterolateral leads Compared to ECG 02/06/2024 19:30:32 Sinus tachycardia no longer present Myocardial infarct finding no longer present Electronically Signed On 08-03-2024 20:44:00 ARCHAEOLOGIST by Heber Cortes Please click the below link to view image of tracing.
--- NOTE | 2024-08-03 10:12 | HMCIMG ---
PORTABLE CHEST RADIOGRAPH INDICATION: htn COMPARISON: None FINDINGS: physicians assistant leads overlie the field of view. Heart size is normal. The pulmonary vascularity and zia appear normal. No abnormal pulmonary parenchymal opacity or consolidation identified. No significant pleural effusion noted. No pneumothorax detected. IMPRESSION: No radiographic evidence for any acute cardiopulmonary process.
[2024-08-04] MEDS ORDERED: MIDO5TAB4 PO (21:41)
[2024-08-04] MEDS ORDERED: VALS80TA30 PO (21:41)
[2024-08-04] MEDS ORDERED: CLON0.1T PO (21:41)
[2024-08-04] MEDS ORDERED: HYD50 PO (23:15)
[2024-08-06] MEDS ORDERED: NITR100C4 PO (12:34)
== END 2024-08-03 00:11 | disposition left against medical advice (07) ==
LOC: EDH 20:51
DX: I12.0 Hypertensive chronic kidney disease with stage 5 chronic kidney disease or end stage renal disease (principal); E11.22 Type 2 diabetes mellitus with diabetic chronic kidney disease; N18.6 End stage renal disease; E87.5 Hyperkalemia; Z99.2 Dependence on renal dialysis; Z79.82 Long term (current) use of aspirin; Z88.0 Allergy status to penicillin; Z90.49 Acquired absence of other specified parts of digestive tract
CPT/HCPCS: 99284; 96374; 71045; 96361; 82550; 84484; 80048; 83880; 85025; 85610; 82948; 81001; 36415; 93005; 94640; J1815; J7070

== ENCOUNTER 2025-08-03 00:41 | Emergency (ER) | payer BC ==
[~2025-08-03] VITALS: Ht 157.5 cm; Wt 90.7 kg
[~2025-08-03 00:41] MED LIST changes: +CLON0.1T PO; +HYD50 PO; -HYDR-3421 PO; +MIDO5TAB4 PO; +NITR100C4 PO; +ONDA-243 PO; -TRAM50TA4 PO; +VALS80TA30 PO
--- NOTE | 2025-08-03 00:54 | NUR ---
TRIAGE EDIT TO ADD PMH
--- NOTE | 2025-08-03 00:58 | ERN ---
ED Note History of Present Illness Stated Complaint: ANXIETY Chief Complaint: Anxiety/Panic Attack Time Seen by MD: 00:47 Dictation: This is a 45-year-old female who is morbidly obese with a severe anxiety disorder and panic and also chronic insomnia apparently has not slept in 4 or 5 days. Took Xanax at 9:00 p.m. hours as well as hydroxyzine and clonazepam she still could not sleep and calm down and her brought her into the ER for further evaluation. Has a known history of end-stage renal disease secondary to polycystic kidney disease and undergoes peritoneal dialysis at home. Patient was extremely restless having some asterixis and tremulousness and she indicated that she only did 1 back of PD today she also stated that she saw a psychiatrist who is managing her anxiety. She has not never been on an SSRI. She has tried to take zolpidem 5 mg p.o. q.h.s. which has not been effective per patient. She has also taken hydroxyzine and clonazepam without any sleep. Patient was extremely anxious and restless shaking Temperature 98 pulse 92 respirations 22 blood pressure 174/113 pulse oximetry of 98% on room air Chronic medical problems include severe anxiety disorder and panic, polycystic kidney disease, diabetes mellitus, hypertension, history of diverticulosis and during 1 of the admission she also had positive cocaine Allergies: Coded Allergies: piperacillin (Unverified Allergy, Unknown, 02/07/24) ITCHING prochlorperazine (Unverified Allergy, Unknown, 04/28/22) Home Meds Active Scripts Ondansetron (Ondansetron Odt) 4 Mg Tab.rapdis, 1 TAB PO BID PRN for nausea/vomiting for 5 Days, #10 TAB 0 Refills Prov:АНДРЕЙ RAMON MD 09/10/24 Nitrofurantoin Monohyd/M-Cryst (Macrobid 100 mg Capsule) 100 Mg Capsule, 1 CAP PO BID for 5 Days, #10 CAP 0 Refills Prov:XOCHILT MELENDEZ 08/06/24 Lactulose (Lactulose) 20 Gram/30 Ml Solution, 20 GM PO [id number] PRN for constipation, #60 ML Prov:KENNY VILLALTA MD 07/13/24 Reported Medications Hydroxyzine HCl (Atarax) 50 Mg Tab, 50 MG PO BID PRN for ANXIETY, TAB 08/04/24 Clonidine HCl (Clonidine HCl) 0.1 Mg Tablet, 0.1 MG PO DAILY for HIGH BLOOD PRESSURE, TAB 08/04/24 Midodrine HCl (Midodrine HCl) 5 Mg Tablet, 5 MG PO TID PRN for INCREASED BLOOD PRESSURE, TAB 08/04/24 Valsartan (Valsartan) 80 Mg Tablet, 80 MG PO DAILY, TAB 08/04/24 Aspirin (Aspirin EC) 81 Mg Tablet.dr, 1 TAB PO DAILY 02/07/24 Docusate Sodium (Docusate Sodium) 100 Mg Capsule, 1 CAP PO DAILY 02/07/24 Sevelamer HCl (Sevelamer HCl) 800 Mg Tablet, 2400 MG PO TIDMEALS, TAB 03/23/23 Past Medical History Past Medical History: Anxiety, Diabetes-Type II, Hypertension, Renal Disese, Renal Failure Additional Past Medical Hx: PERITONIEAL DIALYSIS Surgical History: Other Surgical History Other: BILATERAL KIDNEY REMOVAL Family History: Negative Social History: Drugs, ETOH, Lives with family RN Note Reviewed/Agreed w/PFSH: Yes Review of System Dictation Constitutional: Negative for fever,chills, and weight loss Eyes: Negative for injury, pain,redness, and discharge ENT: Negative for injury,pain or swelling Cardiovascular: Negative for chest pain, palpitations, and edema Respiratory: Negative for shortness of breath, cough, and wheezing, Abdomen/GI: Negative for abdominal pain, nausea, vomiting, diarrhea, and constipation Back: Negative for injury and pain : Negative for injury, bleeding and discharge MS/Extremity: Negative for injury and deformity Skin: Negative for rash, and discoloration Neuro: Negative for headache, weakness, numbness, tingling, and seizure Psych: Negative for suicide ideation, homicidal ideation, and hallucinations positive for severe anxiety with panic, shakiness and severe insomnia Initial Vital Sign VS Vital Signs Date Time Temp Pulse Resp B/P (MAP) Pulse Ox O2 Delivery O2 Flow Rate FiO2 08/03/25 00:43 98.1 92 22 174/113 98 Room Air 08/03/25 04:54 0 21 Physical Exam Dictation General: awake, alert, NAD morbidly obese anxious shaky Head/Face: Normocephalic, atraumatic Eyes: PERRL, EOMI, vision at baseline ENT: oral cavity clear, TMs clear, no signs of infection Neck: Trachea midline, supple, no nuchal rigidity Cardiovascular: RRR, normal S1/S2, No MRGs, no JVD Respiratory: CTAB, no respiratory distress, No rales or wheezes Abdomen: Soft, non-tender, non-distended, normal bowel sounds, no guarding or rebound. PD catheter in place Skin: Warm, dry, normal turgor, no rash MS/Extremity: Pulses equal, no cyanosis, neurovascular intact, FROM Neuro: COAx4, GCS 15, strength 5/5, CN 2-12 intact, normal cerebellar exam, normal gait, Psych: Normal behavior, mood, and affect normal Extremities-trace edema without any palpable cords, Homans sign is negative Results (Laboratory/Radiology) Laboratory/Radiology Laboratory Tests Test 08/03/25 01:26 White Blood Count 7.1 K/uL (4.8-10.8) Red Blood Count 2.96 MIL/uL (4.00-5.50) L Hemoglobin 8.8 g/dL (12.0-16.0) L Hematocrit 27.1 % (36-48) L Mean Corpuscular Volume 91.6 fL (79-99) Mean Corpuscular Hemoglobin 29.7 pg (27.0-33.0) Mean Corpuscular Hemoglobin Concent 32.5 g/dL (32.0-36.0) Red Cell Distribution Width 15.2 % (11.0-15.5) Platelet Count 164 K/uL (130-400) Mean Platelet Volume 10.5 fL (7.5-10.5) Immature Granulocyte % (Auto) 0.1 % (0-1) Neutrophils (%) (Auto) 61.1 % (40.0-77.0) Lymphocytes (%) (Auto) 26.9 % (21.0-51.0) Monocytes (%) (Auto) 6.6 % (3.0-13.0) Eosinophils (%) (Auto) 4.5 % (0.0-8.0) Basophils (%) (Auto) 0.8 % (0.0-5.0) Neutrophils # (Auto) 4.4 K/uL (1.8-7.7) Lymphocytes # (Auto) 1.9 K/uL (1.0-4.8) Monocytes # (Auto) 0.5 K/uL (0.1-1.0) Eosinophils # (Auto) 0.32 K/uL (0.00-0.70) Basophils # (Auto) 0.06 K/uL (0.00-0.20) Absolute Immature Granulocyte (auto 0.01 K/uL (0-1) Nucleated Red Blood Cells 0.0 % (0.0-0.19) Sodium Level 137 mmol/L (136-145) Potassium Level 3.9 mmol/L (3.5-5.1) Chloride Level 93 mmol/L (101-111) L Carbon Dioxide Level 25 mmol/L (21-32) Blood Urea Nitrogen 72 mg/dL (7-18) H Creatinine 16.3 mg/dL (0.5-1.0) *H Glomerular Filtration Rate Calc 2 mL/min (>90) Random Glucose 104 mg/dL (70-105) Total Calcium 8.2 mg/dL (8.5-10.1) L Labs Reviewed?: Yes ED Course ED Course Orders Procedure Category Date Status Time Cbc With Differential LAB 08/03/25 Complete 00:54 Basic Metabolic Panel LAB 08/03/25 Complete 00:54 Diazepam 5 Mg/Ml 2 Ml PHA 08/03/25 Complete Syg (Valium 5 Mg/M 02:00 Lorazepam 2 Mg PHA 08/03/25 Complete (Ativan) 03:30 Current Medications Medications (Trade) Dose Ordered Sig/Isabel Route PRN Reason Start Time Stop Time Status Last Admin Dose Admin Diazepam (VALium 5 MG/ML 2 ML SYG) 2.5 mg ONCE ONCE IM 08/03/25 02:00 08/03/25 02:01 DC 08/03/25 01:56 Lorazepam (AtiVAN) 1 mg ONCE ONCE IVP 08/03/25 03:30 08/03/25 03:31 DC 08/03/25 03:15 Vital Signs Date Time Temp Pulse Resp B/P (MAP) Pulse Ox O2 Delivery O2 Flow Rate FiO2 08/03/25 04:54 98.2 65 19 165/89 99 Room Air* 0 21 08/03/25 00:43 98.1 92 22 174/113 98 Room Air Medical Decision Making MDM Differential diagnosis: Medication side effects, severe anxiety with panic, electrolyte imbalance, recreational drug related This is a 45-year-old female who is morbidly obese with a severe anxiety disorder and panic and also chronic insomnia apparently has not slept in 4 or 5 days. Took Xanax at 9:00 p.m. hours as well as hydroxyzine and clonazepam she still could not sleep and calm down and her brought her into the ER for further evaluation. Has a known history of end-stage renal disease secondary to polycystic kidney disease and undergoes peritoneal dialysis at home. Patient was extremely restless having some asterixis and tremulousness and she indicated that she only did 1 back of PD today she also stated that she saw a psychiatrist who is managing her anxiety. She has not never been on an SSRI. She has tried to take zolpidem 5 mg p.o. q.h.s. which has not been effective per patient. She has also taken hydroxyzine and clonazepam without any sleep. Patient was extremely anxious and restless shaking Temperature 98 pulse 92 respirations 22 blood pressure 174/113 pulse oximetry of 98% on room air Chronic medical problems include severe anxiety disorder and panic, polycystic kidney disease, diabetes mellitus, hypertension, history of diverticulosis and during 1 of the admission she also had positive cocaine 2:30 a.m. labs reviewed CBC showed a white count of 7.1 hemoglobin 8.8 platelets 164 BNP 7 is significant for a creatinine of 16.3 I was unsure if she is withdrawing from benzodiazepines as she has been taking double the dose. Symptomatic treatment and I had a long discussion with the patient and her spouse about getting back to see the psychiatrist and be evaluated for possible SSRI or any changes that need to be made to the medi cations. Patient stated that she could not produce urine so the urine tests were canceled She calm down significantly after the benzos Rationale: Tests considered and ordered secondary to shared decision making include: Labs Previous outside records reviewed: Old ER visits. Risk of complication and/or morbidity or mortality of patient management: None Medications-Per medication reconciliation Need for hospitalization: Patient does not meet criteria for hospitalization. Need for emergency major/minor surgery: No There are no social concerns with this patient. Prescription drug management Prescriptions will include symptomatic care Patient's prior external medical records from other ER visits were reviewed by me as indicated. Prior testing and results from previous visits were reviewed. Prior tests were taken into account with medical decision making and resource utilization, independent historian/historians were used to obtain complete medical history. I independently interpreted the test that were performed, results were reviewed by me and considered findings on radiology if ordered. Medical management and examination interpretation discussions were had by me with other qualified healthcare professionals as indicated for the patient's care. Problem List Problem List: (1) Severe anxiety with panic (2) Insomnia (3) ESRD (end stage renal disease) (4) Polycystic kidney disease (5) Requires peritoneal dialysis DX & DISP Disposition: Discharge Departure Impression: Primary Impression: Insomnia Additional Impressions: Severe anxiety with panic, ESRD (end stage renal disease), Requires peritoneal dialysis, Polycystic kidney disease Condition: Stable Additional Instructions: Patient and the caregiver have been informed of all the diagnostic tests and the imaging conducted during the today's visit to the emergency room and has verbalized understanding of the results I have personally reviewed and interpreted all diagnostic exams performed here in the ER today as well as the vital signs documented by the nursing staff. The patient is now being discharged to home and should follow up with the primary care physician or the specialist as directed by the ER staff. I had a long discussion with the patient and her spouse and explained to them that it is imperative that the patient must follow up with tropical as well as her psychiatrist to have not only her generalized anxiety but mood stabilized. Since zolpidem clonazepam hydroxyzine have not been helpful, I have educated them to discuss about other possibilities including a mood stabilizer and therapy. They both verbalized full understanding Referrals: RITO CANO MD (PCP) KENNY VILLALTA MD Aug 03, 2025 00:58
[2025-08-03 01:39] LABS: IMMATURE GRANULOCYTE ABSOLUTE 0.01 K/uL (0-1); NUCLEATED RED BLOOD CELLS 0.0 % (0.0-0.19); PLATELET COUNT (AUTO) 164 K/uL (130-400); RED BLOOD CELL COUNT(AUTO) 2.96 MIL/uL (4.00-5.50); RED CELL DISTRIBUTION WIDTH 15.2 % (11.0-15.5); WHITE BLOOD COUNT (AUTO) 7.1 K/uL (4.8-10.8)
[2025-08-03 01:52] LABS: GLOMERULAR FILTR. RATE CALC 2.0 mL/min (>90); GLUCOSE,RANDOM 104.0 mg/dL (70-105); SODIUM SERUM 137.0 mmol/L (136-145); UREA NITROGEN, BLOOD 72.0 mg/dL (7-18)
[2025-08-03 02:14] LABS: CREATININE 16.3 mg/dL (0.5-1.0)
--- NOTE | 2025-08-03 03:32 | NUR ---
PATIENT DECLINED TO PRODUCE URINE SAMPLE. STATED SHE DID NOT HAVE KIDNEYS, SHE DOES PERITONEAL DIALYSIS
[2025-08-03 04:54] VITALS: BP 165/89; PULSE 65; RESP 19; TEMP 98.3; O2SAT 99
== END 2025-08-03 04:55 | disposition home or self-care (01) ==
LOC: EDH 00:41
DX: G47.00 Insomnia, unspecified (principal); F41.0 Panic disorder [episodic paroxysmal anxiety]; I12.0 Hypertensive chronic kidney disease with stage 5 chronic kidney disease or end stage renal disease; E11.22 Type 2 diabetes mellitus with diabetic chronic kidney disease; N18.6 End stage renal disease; Q61.3 Polycystic kidney, unspecified; Z99.2 Dependence on renal dialysis; Z88.0 Allergy status to penicillin; Z88.8 Allergy status to other drugs, medicaments and biological substances; Z79.899 Other long term (current) drug therapy; Z79.82 Long term (current) use of aspirin; Z90.5 Acquired absence of kidney
CPT/HCPCS: 99284; 96374; 80048; 85025; 36415; 96372; J3360; J2060